=== PATIENT | female | born 1955 | race Caucasian/White ===

== ENCOUNTER 2018-01-30 14:39 | Emergency (ER) | payer OTHER ==
[~2018-01-30] VITALS: Ht 167.6 cm; Wt 53.5 kg
[~2018-01-30 14:39] MED LIST: ACETAMINOPHEN325 M1 PO; ADULT LOW DOSE81 MG PO; APAP650 PO; ARICEPT10 MG PO; ASPERCREME 1141.7 GM; BOOST PO; CALCIUM OYSTER500 MG; CARVEDILOL6.25 MG PO; CLONIDINE HCL0.2 M2 PO; FOSAMAX 70 MG T70 M1; K-DUR 20 MEQ T20 MEQ PO; LANOXIN 0.120.125 M1 PO; LASIX 80 MG TAB80 M1 PO; LIPITOR10 MG PO; LISINOPRIL20 MG PO; MINOCYCLINE HC100 M2 PO; MOBIC15 MG PO; MOM PO; NAMENDA 10 MG T10 MG PO; NASONEX17 GM SPRAY; NORMAL SALINE; PHENERGAN 25 MG25 M1 IM; PROZAC 10 MG CA10 M1 PO; TRIPLE ANTIBIOT30 G2; ZYPREXA2.5 MG PO
[2018-01-30] MEDS ORDERED: FLONASE 0.05%50 MCG NASAL ×2 (14:56)
[2018-01-30] MEDS ORDERED: AUGMENTIN 875-1 EACH PO (14:56)
[2018-01-30 15:16] VITALS: BP 127/85
== END 2018-01-30 15:18 | disposition home or self-care (01) ==
LOC: M.ERS 14:39
DX: H66.91 Otitis media, unspecified, right ear (principal); J01.00 Acute maxillary sinusitis, unspecified; F17.210 Nicotine dependence, cigarettes, uncomplicated

== ENCOUNTER 2020-03-30 19:17 | Emergency (ER) | payer OTHER ==
[~2020-03-30] VITALS: Ht 167.6 cm; Wt 56.7 kg
[~2020-03-30 19:17] MED LIST changes: +AUGMENTIN 875-1 EACH PO; +FLONASE 0.05%50 MCG NASAL
[2020-03-30] MEDS ORDERED: NAPROSYN500 MG PO (21:27)
[2020-03-30] MEDS ORDERED: NORCO 5-325 TA1 EAC1 PO (21:27)
[2020-03-30 21:34] VITALS: BP 140/79
== END 2020-03-30 21:35 | disposition home or self-care (01) ==
LOC: M.ERS 19:17
DX: M79.671 Pain in right foot (principal); F17.210 Nicotine dependence, cigarettes, uncomplicated; Z98.51 Tubal ligation status

== ENCOUNTER 2020-04-01 09:23 | Emergency (ER) | payer OTHER ==
[~2020-04-01] VITALS: Ht 167.6 cm; Wt 54.4 kg
[~2020-04-01 09:23] MED LIST changes: +NAPROSYN500 MG PO; +NORCO 5-325 TA1 EAC1 PO
[2020-04-01 09:35] VITALS: BP 172/93
== END 2020-04-01 09:49 | disposition home or self-care (01) ==
LOC: M.ERS 09:23
DX: M25.571 Pain in right ankle and joints of right foot (principal); F17.210 Nicotine dependence, cigarettes, uncomplicated; Z79.899 Other long term (current) drug therapy; Z98.51 Tubal ligation status